=== PATIENT | female | born 1955 | race Caucasian/White ===

== ENCOUNTER 2017-08-26 16:43 | Emergency (ER) | payer MEDICARE ==
[~2017-08-26] VITALS: Ht 162.6 cm; Wt 85.0 kg
[~2017-08-26 16:43] MED LIST: CHOL500050 PO; CYCL-259 PO; DICL1TAB5 PO; ENAL5TAB PO; FAMO20TA7 PO; FURO20TA3 PO; HYDR-3245 PO; LEVO150T PO; LEVO175T5 PO; METF500T5 PO; OXYC5TAB3 PO; PREG75CA PO; ROSU20TA PO; SERT100T5 PO
[2017-08-26 17:05] VITALS: BP 124/76
== END 2017-08-26 19:02 | disposition home or self-care (01) ==
LOC: ED 18:55
DX: S83.92XA Sprain of unspecified site of left knee, initial encounter (principal); E78.00 Pure hypercholesterolemia, unspecified; E11.9 Type 2 diabetes mellitus without complications; I10 Essential (primary) hypertension; X50.1XXA Overexertion from prolonged static or awkward postures, initial encounter; Y93.89 Activity, other specified; Y92.89 Other specified places as the place of occurrence of the external cause; Y99.8 Other external cause status
CPT/HCPCS: 99284